=== PATIENT | male | born 1985 | race Caucasian/White ===

== ENCOUNTER 2017-10-04 10:17 | Emergency (ER) | payer MEDICAID ==
[~2017-10-04] VITALS: Ht 182.9 cm; Wt 91.9 kg
[2017-10-04 10:25] VITALS: BP 121/80
== END 2017-10-04 11:10 | disposition home or self-care (01) ==
LOC: ED 11:00
DX: J20.8 Acute bronchitis due to other specified organisms (principal); B96.89 Other specified bacterial agents as the cause of diseases classified elsewhere
CPT/HCPCS: 99283